=== PATIENT | female | born 1955 | race Caucasian/White ===

== ENCOUNTER 2018-07-12 16:04 | Emergency (ER) | payer MEDICAID, OTHER ==
[~2018-07-12] VITALS: Ht 165.1 cm; Wt 49.9 kg
[2018-07-12] MEDS ORDERED: ONDANSETRON HCL 4 MG/2 ML VIAL IV ONE ×2 (16:45→21:00)
[2018-07-12] MEDS ORDERED: HYDROmorphone HCL 2 MG/ML VL IV ONE ×2 (16:45→21:00)
[2018-07-12] MEDS ORDERED: ETOMIDATE (2MG/ML) 20ML VIAL IV ONE ×3 (17:15→18:30)
[2018-07-12 17:47] LABS: Basophils # (auto) 0.1 uL; Basophils % (auto) 1.9 % (0.0-2.0); Eosinophils # (auto) 0.1 uL; Hematocrit 44.2 % (36.0-46.0); Lymphocytes # (auto) 1.3 uL; Lymphocytes % (auto) 27.3 % (10.0-50.0); Mean Corpuscular Hemoglobin 31.6 pg (28.0-32.0); Mean Corpuscular Volume 92.8 fL (80.0-100.0); Monocytes # (auto) 0.4 uL; Monocytes % (auto) 8.1 % (0.0-12.0); Neutrophils % (auto) 60.7 % (37.0-80.0); Platelet Count (auto) 301 10^3/uL (140-450); Red Blood Cells 4.76 10^6/uL (4.0-5.20); White Blood Cell 4.9 10^3/uL (4.4-10.8)
[2018-07-12 17:52] LABS: INR 0.93 (0.9-1.15); Partial Thromboplastin Time 24.5 sec (23.78-33.04)
[2018-07-12 17:55] LABS: Alanine Aminotransferase 19 U/L (13-56); Albumin 3.9 g/dL (3.4-5.0); Anion Gap 8 (5-15); Aspartate Aminotransferase 18 U/L (15-37); Blood Urea Nitrogen 14 mg/dL (7-18); Calcium 8.3 mg/dL (8.5-10.1); Carbon Dioxide 26 mmol/L (21-32); Chloride 102 mmol/L (98-107); GFR African American > 60 mL/min; GFR Non-African American > 60 mL/min; Glucose 86 mg/dL (74-106); Potassium 3.7 mmol/L (3.5-5.1); Sodium 136 mmol/L (136-145)
[2018-07-12 17:57] LABS: Alkaline Phosphatase 63 U/L (45-117); Total Protein 7.3 g/dL (6.4-8.2)
[2018-07-13] MEDS ORDERED: LORazepam 2MG/ML-1ML VIAL IV ONE
[2018-07-13 01:59] VITALS: BP 109/65
== END 2018-07-13 05:39 | disposition home or self-care (01) ==
LOC: ER 16:04
DX: T84.020A Dislocation of internal right hip prosthesis, initial encounter (principal); J44.9 Chronic obstructive pulmonary disease, unspecified; Z88.1 Allergy status to other antibiotic agents; Z90.49 Acquired absence of other specified parts of digestive tract; Z98.51 Tubal ligation status; Z96.643 Presence of artificial hip joint, bilateral; X50.0XXA Overexertion from strenuous movement or load, initial encounter; Y93.89 Activity, other specified; Y99.8 Other external cause status; Y92.89 Other specified places as the place of occurrence of the external cause
CPT/HCPCS: 27265; 36415; 73501; 73502; 80053; 85025; 85610; 85730; 94761; 96374; 96375; 96376; 99152; 99153; 99285; J1170; J2060; J2405

== ENCOUNTER → 2019-11-03 | Emergency (ER) | payer MEDICAID ==
[~2019-11-03] VITALS: Ht 165.1 cm; Wt 45.4 kg
[~2019-11-03] MED LIST: ALBUTEROL SULF 2.5 MG/0.5ML(0.5%) NEB SOLN NEB ONE; PRE1T PO; methylPREDNISolone SOD SUCC 125 MG/2 ML VL IV ONE
[2019-11-03 10:07] LABS: Hematocrit 45.1 % (36.0-46.0); Hemoglobin 15.1 g/dL (12.2-16.2); Mean Corpuscular Hemoglobin 31.3 pg (28.0-32.0); Mean Corpuscular Hgb Conc. 33.4 g/dL (32.0-36.0); Mean Corpuscular Volume 93.7 fL (80.0-100.0); Platelet Count (auto) 343 10^3/uL (140-450); Red Blood Cells 4.82 10^6/uL (4.0-5.20); White Blood Cell 5.4 10^3/uL (4.4-10.8)
[2019-11-03 10:21] LABS: Band Neutrophils % (manual) 0; Basophils % (manual) 0 (0.0-2.0); Blast Cells 0; Metamyelocytes % 0; Myelocytes % 0; Promyelocytes % 0
[2019-11-03 10:25] LABS: Albumin 3.1 g/dL (3.4-5.0); Anion Gap 5 (5-15); Blood Urea Nitrogen 15 mg/dL (7-18); Calcium 8.6 mg/dL (8.5-10.1); Carbon Dioxide 25 mmol/L (21-32); Chloride 109 mmol/L (98-107); Glucose 100 mg/dL (74-106); Potassium 3.6 mmol/L (3.5-5.1); Sodium 139 mmol/L (136-145)
[2019-11-03 10:32] LABS: Alanine Aminotransferase 20 U/L (13-56); Alkaline Phosphatase 72 U/L (45-117); Aspartate Aminotransferase 17 U/L (15-37); BUN/Creatinine Ratio 24.6; Bilirubin, Total 0.4 mg/dL (0.2-1.0); GFR African American 127 mL/min; GFR Non-African American 105 mL/min; Total Protein 6.7 g/dL (6.4-8.2)
[2019-11-03 10:51] LABS: Eosinophils % (manual) 14 (0-7); Lymphocytes % (manual) 44 (10.0-50.0); Monocytes % (manual) 5 (0-12); Reactive Lymphocytes 5
[2019-11-03 13:34] VITALS: BP 105/70
== END | disposition home or self-care (01) ==
LOC: EDUNIT# 09:00 → ER 09:00 → EDBD 09:00
DX: J45.901 Unspecified asthma with (acute) exacerbation (principal); E46 Unspecified protein-calorie malnutrition; J44.9 Chronic obstructive pulmonary disease, unspecified; K21.9 Gastro-esophageal reflux disease without esophagitis; F17.210 Nicotine dependence, cigarettes, uncomplicated; Z68.1 Body mass index [BMI] 19.9 or less, adult
CPT/HCPCS: 36415; 71045; 80053; 84484; 85007; 85027; 93005; 94640; 96374; 99285; J2930